=== PATIENT | male | born 1965 | race Caucasian/White ===

== ENCOUNTER 2023-11-28 15:56 | Inpatient (IN) ==
--- NOTE | 2023-11-28 16:32 | Emergency Department Note ---
Impression & Plan ATILIO (acute kidney injury), Hyperkalemia, Heat exhaustion, Acute hyponatremia ED Provider Note Provider: Gerardo Arceo MD DATE OF SERVICE: 11/28/2023 CHIEF COMPLAINT: Chest tightness, tingling, dizzy, dehydration HISTORY OF PRESENT ILLNESS: Patient is a 58-year-old gentleman past medical history of GERD, hypertension, hyperlipidemia presenting here today reporting onset around 130 this afternoon of some chest tightness and tingling in his hands and dizziness. Tingling and dizziness have improved some. No loss of conscious but has felt faint. Denies significant shortness of breath or fever cough or cold symptoms. Reports central chest tightness. 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 Has been try to hydrate. Has worked out in the heat the last several days. Denies any falls or trauma. No significant abdominal pain reported. Got real sweaty and clammy prior to arrival. PAST MEDICAL HISTORY: As noted above MEDICATIONS: Reviewed home medications SOCIAL HISTORY: Works for [employer] PHYSICAL EXAM: GENERAL: alert and oriented in no acute distress on stretcher somewhat fatigued in appearance Head: normocephalic and atraumatic EYES: No injection, discharge or icterus. PERRL NECK: Trachea midline. Supple. ENT: Mucous membranes pink and moist. LUNGS: Airway patent. No retractions. Breath sounds clear HEART: Regular tachycardic rate and rhythm. No chest wall tenderness ABDOMEN: Soft and non-tender, without guarding or rebound. SKIN: Acyanotic somewhat cool and clammy in nature EXTREMITIES: Without swelling, tenderness or deformity NEUROLOGICAL: No focal deficits moving all extremities. No aphasia. No facial droop or slurred speech. Normal strength and tone in the extremities. Sensation to gross touch normal. Ambulatory. EK bpm sinus tachycardia. No PVC or PAC. No acute ST segment elevation or depression with a QTc of 448. CONTINUOUS CARDIAC MONITORING: was ordered and showed a heart rate of 100s-90s bpm in sinus tachycardia to NSR Patient's laboratory studies and imaging reviewed. Differential includes Infection, dehydration, metabolic abnormality, hypo/hyperglycemia, electrolyte disturbance, anemia, hypoxia, cardiac sources, intracerebral event, toxicologic, neurologic, as well as other pathologies. IMPRESSION/MEDICAL DECISION MAKING: Do question there could be some component of environmental exposure/heat exhaustion to symptoms given his exertion and the very warm weather today while driving and working for [employer]. Does endorse some chest tightness. Tingling in the hands nonspecific and I doubt this represents acute CVA. Given his symptoms however CT head was obtained. Basic blood work obtained. Given some IV hydration here. Denies significant trauma or syncope. Denies any URI symptoms. Benign abdomen on exam. Blood work here with leukocytosis of 19, hyponatremia 129, hyperkalemia 5.5, creatinine elevation 1.73 with very slight ALT elevation of 66. Normal troponin. CK was checked to ensure no rhabdomyolysis. Given IV fluids here. Chest x-ray unremarkable per radiology. Given his hyponatremia, hyperkalemia, acute kidney injury all likely related to dehydration, would recommend that we observe him overnight for hydration and improvement of these to ensure no worsening hyperkalemia or renal function. Leukocytosis I believe is noninfectious but more related to exertion and stress. Will hold off on antibiotics at this time. Given some Tylenol for bit of a headache. Repeat BMP ordered. Discussed with patient and who are agreeable to stay for observation given his abnormalities and hospitalist team was contacted. Please likely his electrolyte abnormalities were improved with hydration will hold off on full medications for the hyperkalemia is only 5.5 right now. Repeat BMP does show improving potassium slightly improved creatinine without much change in sodium yet. DIAGNOSIS: Atypical chest pain, ATILIO, hyperkalemia, hyponatremia, heat exhaustion DISPOSITION: Hospitalist will evaluate Past Med/Surg History Problem List Acute hyponatremia (Acute) Heat exhaustion (Acute) Hyperkalemia (Acute) Chest pressure Abnormal urinalysis ATILIO (acute kidney injury) (Acute) Hypertension (Chronic) Hyperlipidemia (Chronic) GERD (gastroesophageal reflux disease) (Chronic) Surgical History (Updated 11/28/23 @ 18:52 by Nathan Buchanan MD) History of tonsillectomy Family History (Updated 11/28/23 @ 18:52 by Nathan Buchanan MD) Father Diabetes Social History Smoking Status: Never smoker Preferred Language: Maori Feels Safe at Home: Yes Assistive Devices: None Allergies Allergies Allergy/AdvReac Type Severity Reaction Status Date / Time No Known Drug Allergies Allergy Unknown Unverified 11/28/23 17:39 Home Meds Home Medications Medication Instructions Recorded Confirmed Flexeril 5 mg PO BID PRN Spasms 11/28/23 11/28/23 metoprolol succinate 50 mg 75 mg PO QAM 11/28/23 11/28/23 tablet,extended release 24 hr rosuvastatin 40 mg tablet 40 mg PO QAM 11/28/23 11/28/23 Results & Data (ED) Vital Signs Vital Signs - 24 hr 11/28/23 15:59 11/28/23 16:16 11/28/23 16:19 Temperature 36.1 C L Temperature Source Temporal Artery Scan Pulse Rate 113 H 108 H Pulse Rate [Apical] 109 H Pulse Rhythm [Apical] Regular Pulse Strength [Apical] Normal Respiratory Rate 19 20 Respiratory Effort / Characteristics Non-Labored Spontaneous Non-Labored Spontaneous Respiratory Depth Normal Normal Respiratory Pattern Regular Blood Pressure 158/89 H Blood Pressure [Left Arm] 152/107 H Blood Pressure Mean 112 Blood Pressure Mean [Left Arm] 122 Blood Pressure Position [Left Arm] Pulse Oximetry 97 97 Oxygen Delivery Method Room Air Room Air Sepsis Recent Fever Within 48 Hours No Sepsis New/Unexplained Change in Mental Status N/A Sepsis Action Taken by Nursing No Action Required 11/28/23 18:00 Temperature Temperature Source Pulse Rate Pulse Rate [Apical] 97 H Pulse Rhythm [Apical] Regular Pulse Strength [Apical] Normal Respiratory Rate 18 Respiratory Effort / Characteristics Non-Labored Spontaneous Respiratory Depth Normal Respiratory Pattern Regular Blood Pressure Blood Pressure [Left Arm] 145/99 H Blood Pressure Mean Blood Pressure Mean [Left Arm] 114 Blood Pressure Position [Left Arm] Lying Pulse Oximetry 96 Oxygen Delivery Method Room Air Sepsis Recent Fever Within 48 Hours Sepsis New/Unexplained Change in Mental Status Sepsis Action Taken by Nursing Laboratory Data 11/28/23 16:12 11/28/23 17:47 Lab Results 11/28/23 11/28/23 Range/Units 16:12 17:47 WBC 19.01 H (4.8-10.8) K/ul RBC 6.05 (4.70-6.10) M/uL Hgb 17.8 (14.0-18.0) g/dl Hct 52.0 (42.0-52.0) % MCV 86.0 (80.0-100.0) fL MCH 29.4 (25.0-34.0) pg MCHC 34.2 (32.0-36.0) g/dL RDW Std Deviation 39.0 (36.4-46.3) fL RDW Coeff of [place]ar 12.6 (11.5-14.5) % Plt Count 341 (130-400) K/uL MPV 9.1 L (9.4-12.4) fL PT 10.4 (9.0-12.0) Seconds INR 1.0 (0.9-1.1) APTT 24 (21-31) Seconds PTT Ratio 0.9 Sodium 129 L 129 L (136-145) mmol/L Potassium 5.5 H 5.0 (3.5-5.1) mmol/L Chloride 88 L 90 L (98-107) mmol/L Carbon Dioxide 28 30 (21-32) mmol/L Anion Gap 13 H 9 (3-11) BUN 32 H 31 H (6-23) mg/dl Creatinine 1.73 H 1.50 H (0.6-1.4) mg/dl Est Cr Clr Drug Dosing Not Reportable Not Reportable Est GFR ( Amer) 49.3 58.6 ml/min Est GFR (Non-Af Amer) 42.6 50.6 ml/min BUN/Creatinine Ratio 18.5 20.7 H (10-20) Glucose 93 84 (70-99(Fasting)) mg/dl Calcium 10.5 H 10.1 (8.6-10.3) mg/dl Magnesium 3.1 H (1.7-2.4) mg/dl Total Bilirubin 2.0 H (0.2-1.0) mg/dl AST 38 (13-39) U/L ALT 66 H (7-52) U/L Alkaline Phosphatase 97 (34-104) U/L Total Creatine Kinase 233 H (30-223) U/L Troponin I High Sens 10.1 (0-20) pg/ml Total Protein 8.7 H (6.0-8.3) gm/dl Albumin 5.0 (3.4-5.0) gm/dl Globulin 3.7 (2.5-4.0) gm/dl Albumin/Globulin Ratio 1.4 (0.9-2) Administered Medications Discontinued Medications Acetaminophen (Acetaminophen 500 Mg Tab) 1,000 mg PO NOW STA Stop: 07/10/24 17:18 Last Admin: 11/28/23 17:24 Dose: 1,000 mg Documented By: ALISHA Sodium Chloride (Nss) 1,000 mls @ 999 mls/hr IV .Q1H1M ONE Stop: 11/28/23 17:27 Last Infusion: 11/28/23 17:37 Dose: Infused Documented By: Admin: 11/28/23 16:35 Dose: 999 mls/hr Documented By: MARY Imaging Data Radiologist's Impression: Chest X-Ray 11/28/23 16:04 XR chest 1V portable HISTORY: 58 years-old Male stroke alert acute strokelike symptoms COMPARISON: None TECHNIQUE: AP view the chest FINDINGS: Cardiac silhouette is enlarged. Lungs are clear. No pneumothorax or pleural effusion. Bones appear intact. IMPRESSION: No acute process. ACT 112: Negative or not required by law. The above report was generated using voice recognition software. It may contain grammatical, syntax or spelling errors. Electronically signed by: Wilfredo Cannon M.D. 11/28/2023 4:[address] 11/28/23 16:04 CT head/brain wo con CLINICAL HISTORY: 58 years-old Male with Neuro deficit, acute, stroke suspected. Acute strokelike symptoms TECHNIQUE: Multiple axial CT images of the head were obtained without contrast. A dose lowering technique was utilized adhering to the principles of ALARA. CT DOSE: 547.75 mGy.cm COMPARISON: None. FINDINGS: No acute intracranial hemorrhage, midline shift, intracranial mass, hydrocephalus, territorial ischemia or abnormal extra-axial collection. Involutional changes with chronic microvascular ischemic disease. The calvarium is intact. The paranasal sinuses, mastoid air cells, and middle ear cavities are clear. IMPRESSION: No acute intracranial abnormality identified. ACT 112: Negative or not required by law. The above report was generated using voice recognition software. It may contain grammatical, syntax or spelling errors. Electronically signed by: Wilfredo Cannon M.D. 11/28/2023 5:07 PM Discharge Plan Visit Data Chief Complaint: Dehydration Stated Complaint: FATIGUE, WEAKNESS, HEAT EXAUSTION/DEHYDRATION ED Provider: Gerardo Arceo Discharge Problem: ATILIO (acute kidney injury), Hyperkalemia, Heat exhaustion, Acute hyponatremia Patient Disposition: Being Evaluated by Hospitalist Forms Stand Alone Forms: My [facility] Prescriptions Prescriptions: No Action metoprolol succinate 50 mg Tablet Extended Release 24 Hr 75 mg PO QAM rosuvastatin 40 mg Tablet 40 mg PO QAM Flexeril 5 mg PO BID PRN (Reason: Spasms) Referrals Referrals: Kelley Avendano PA-C [Primary Care Provider] -
[2023-11-28] MEDS: SODIUM CHLORIDE 0.9% 1,000 ML IV ONE (16:35)
[2023-11-28 16:48] LABS: Alanine Aminotransferase 66 U/L (7-52); Albumin Globulin Ratio 1.4 (0.9-2); Alkaline Phosphatase 97 U/L (34-104); Anion Gap 13 (3-11); Aspartate Aminotransferase 38 U/L (13-39); BUN Creatinine Ratio 18.5 (10-20); Blood Urea Nitrogen 32 mg/dl (6-23); Calcium 10.5 mg/dl (8.6-10.3); Carbon Dioxide 28 mmol/L (21-32); Chloride 88 mmol/L (98-107); Est GFR (African American) 49.3 ml/min; Est GFR (Non-African American) 42.6 ml/min; Globulin 3.7 gm/dl (2.5-4.0); Glucose 93 mg/dl (70-99(Fasting)); Magnesium 3.1 mg/dl (1.7-2.4); Potassium 5.5 mmol/L (3.5-5.1); Sodium 129 mmol/L (136-145); Total Protein 8.7 gm/dl (6.0-8.3)
--- NOTE | 2023-11-28 16:50 | XRay Report ---
XR chest 1V portable HISTORY: 58 years-old Male stroke alert acute strokelike symptoms COMPARISON: None TECHNIQUE: AP view the chest FINDINGS: Cardiac silhouette is enlarged. Lungs are clear. No pneumothorax or pleural effusion. Bones appear in tact. IMPRESSION: No acute process. ACT 112: Negative or not required by law. The above report was generated using voice recognition software. It may contain grammatical, syntax o r spelling errors. Electronically signed by: Wilfredo Cannon M.D. 11/28/2023 4:49 PM
[2023-11-28 16:54] LABS: Hemoglobin 17.8 g/dl (14.0-18.0); Mean Corpuscular Hemoglobin 29.4 pg (25.0-34.0); Mean Corpuscular Hgb Conc 34.2 g/dL (32.0-36.0); Mean Platelet Volume 9.1 fL (9.4-12.4); Platelet Count 341 K/uL (130-400); RDW Coefficient of Variation 12.6 % (11.5-14.5); Red Blood Count 6.05 M/uL (4.70-6.10); Troponin I High Sensitivity 10.1 pg/ml (0-20); White Blood Count 19.01 K/ul (4.8-10.8)
[2023-11-28 17:01] LABS: Partial Thromboplastin Ratio 0.9; Partial Thromboplastin Time 24 Seconds (21-31); Prothrombin Time 10.4 Seconds (9.0-12.0)
--- NOTE | 2023-11-28 17:09 | CT Scan Report ---
CT head/brain wo con CLINICAL HISTORY: 58 years-old Male with Neuro deficit, acute, stroke suspected. Acute strokelike sy mptoms TECHNIQUE: Multiple axial CT images of the head were obtained without contrast. A dose lowering tech nique was utilized adhering to the principles of ALARA. CT DOSE: 547.75 mGy.cm COMPARISON: None. FINDINGS: No acute intracranial hemorrhage, midline shift, intracranial mass, hydrocephalus, territorial ischem ia or abnormal extra-axial collection. Involutional changes with chronic microvascular ischemic disea se. The calvarium is intact. The paranasal sinuses, mastoid air cells, and middle ear cavities are clear . IMPRESSION: No acute intracranial abnormality identified. ACT 112: Negative or not required by law. The above report was generated using voice recognition software. It may contain grammatical, syntax o r spelling errors. Electronically signed by: Wilfredo Cannon M.D. 11/28/2023 5:07 PM
[2023-11-28] MEDS: ACETAMINOPHEN 500 MG TAB PO STA (17:24)
[2023-11-28 17:26] LABS: Creatine Kinase 233 U/L (30-223)
--- NOTE | 2023-11-28 17:36 | History & Physical Report ---
Date of Service November 28, 2023 Assessment & Plan (1) ATILIO (acute kidney injury): Plan: Acute kidney injury Likely prerenal due to dehydration Avoid NSAIDs Baseline Cr: 0.9 Avoid nephro toxic agents Continue IV fluids Monitor renal function Check renal ultrasound Monitor CK levels Leukocytosis Hypercalcemia Hyperkalemia Hyponatremia Likely secondary to ATILIO, dehydration No obvious source of infection Will hold IV antibiotics for now Blood cultures obtained Monitor electrolytes, WBC Continue IV fluids Chest Pain: Likely related to high blood pressure Initial troponin:Negative EKG shows: No signs of acute ischemia CXR: Unremarkable Check resting echo Trend serial cardiac enzymes, repeat EKG AM, fasting lipid panel in AM Treat blood pressure Will consider cardiology evaluation if needed Hypertensive urgency Continue metoprolol Added amlodipine IV labetalol as needed Monitor BP Presyncope: Likely Situational CT head: No acute intracranial findings Monitor in Telemetry for arrhythmia Check Orthostatics Continue IV fluids Check ECHO Hyperlipidemia Continue statin Obesity BMI 38 Counseled lifestyle changes Chronic back pain Lumbar disc herniation Flexeril as needed Prediabetes Update HbA1c DVT Px: Heparin SQ Code Status Full Code History of Present Illness Chief Complaint: Presyncope Primary Care Provider: Kelley Avendano PA-C Patient is a 58-year-old male with history of hypertension, hyperlipidemia, lumbar disc herniation, prediabetes and obesity presents with history of dizziness associated with chest tightness and upper extremity tingling sensation today. 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 He felt dizzy but denies any syncopal episode. Chest tightness lasted for unknown duration and currently resolved. He denies any aggravating, relieving factors. He admits to have headache today. He thought that he could be dehydrated and so came to ED for further evaluation. Tingling sensation in upper extremity resolved as well. He felt diaphoretic, clammy prior to arrival. Denies any history of Dyspnea, palpitations, cough, wheezing, fever, chills, fall, head trauma, focal weakness, change in vision, nausea, vomiting, abdominal pain, diarrhea, change in appetite. Was noted to have elevated blood pressure while in ED. Allergies Allergy/AdvReac Type Severity Reaction Status Date / Time No Known Drug Allergies Allergy Unknown Unverified 11/28/23 17:39 Home Medications Medication Instructions Recorded Confirmed Type Flexeril 5 mg PO BID PRN Spasms 11/28/23 11/28/23 History metoprolol succinate 50 mg 75 mg PO QAM 11/28/23 11/28/23 History tablet,extended release 24 hr rosuvastatin 40 mg tablet 40 mg PO QAM 11/28/23 11/28/23 History Past Med/Surg History Problem List Acute hyponatremia (Acute) Heat exhaustion (Acute) Hyperkalemia (Acute) Chest pressure Abnormal urinalysis ATILIO (acute kidney injury) (Acute) Hypertension (Chronic) Hyperlipidemia (Chronic) GERD (gastroesophageal reflux disease) (Chronic) Surgical History (Updated 11/28/23 @ 18:52 by Nathan Buchanan MD) History of tonsillectomy Family History (Updated 11/28/23 @ 18:52 by Nathan Buchanan MD) Father Diabetes Social History Smoking Status: Never smoker Preferred Language: Albanian Feels Safe at Home: Yes Assistive Devices: None Review of Systems Review of Systems: All systems reviewed & are unremarkable except as noted in Subjective Physical Exam Physical Exam: Physical Exam: Vitals signs as noted above General Appearance:Obese, no apparent distress Head: normocephalic, Atraumatic Eyes: normal inspection, EOMI Neck: supple, Trachea midline Respiratory/Chest: Normal breath sounds, CTA, No accessory muscle use Cardiovascular: S1, S2, No murmur, +Tachycardia Abdomen/GI:Soft, Non tender, Bowel sounds present Extremities/Musculoskeletal:normal inspection, Trace pedal edema Neurologic/Psych:AAOX3, grossly no focal neurological deficits Skin: normal color, warm Results & Data Results & Data Vital Signs (Past 12 Hours) Vital Signs Temp Pulse Pulse Resp BP BP Pulse Ox 11/28/23 16:19 109 H 20 152/107 H 97 11/28/23 16:16 108 H 11/28/23 15:59 36.1 C L 113 H 19 158/89 H 97 O2 Del Method 11/28/23 16:19 Room Air 11/28/23 16:16 11/28/23 15:59 Room Air Laboratory Results Short CBC 11/28/23 Range/Units 16:12 WBC 19.01 H (4.8-10.8) K/ul Hgb 17.8 (14.0-18.0) g/dl Hct 52.0 (42.0-52.0) % Plt Count 341 (130-400) K/uL BMP 11/28/23 11/28/23 16:12 17:47 Sodium 129 L 129 L Potassium 5.5 H 5.0 Chloride 88 L 90 L Carbon Dioxide 28 30 BUN 32 H 31 H Creatinine 1.73 H 1.50 H Glucose 93 84 Calcium 10.5 H 10.1 Cardiac Enzymes 11/28/23 Range/Units 16:12 Total Creatine Kinase 233 H (30-223) U/L Liver Function 11/28/23 Range/Units 16:12 Total Bilirubin 2.0 H (0.2-1.0) mg/dl AST 38 (13-39) U/L ALT 66 H (7-52) U/L Alkaline Phosphatase 97 (34-104) U/L Albumin 5.0 (3.4-5.0) gm/dl Diagnostic Findings --CT Head:No acute intracranial abnormality identified. --CXR:No acute process. Medications Administered Home Medications Medication Instructions Recorded Confirmed Flexeril 5 mg PO BID PRN Spasms 11/28/23 11/28/23 metoprolol succinate 50 mg 75 mg PO QAM 11/28/23 11/28/23 tablet,extended release 24 hr rosuvastatin 40 mg tablet 40 mg PO QAM 11/28/23 11/28/23 ECG Additional Comments: EKG: Sinus tachycardia, possible left atrial enlargement, QTc 448.
[2023-11-28] MEDS ORDERED: LABETALOL HCL IV 5 MG/ML 20ML IV PRN (17:53)
[2023-11-28 18:17] LABS: Anion Gap 9 (3-11); BUN Creatinine Ratio 20.7 (10-20); Blood Urea Nitrogen 31 mg/dl (6-23); Calcium 10.1 mg/dl (8.6-10.3); Carbon Dioxide 30 mmol/L (21-32); Chloride 90 mmol/L (98-107); Est GFR (African American) 58.6 ml/min; Est GFR (Non-African American) 50.6 ml/min; Glucose 84 mg/dl (70-99(Fasting)); Sodium 129 mmol/L (136-145)
--- NOTE | 2023-11-28 18:36 | Electrocardiogram Report ---
Test Reason : Blood Pressure : / mmHG Vent. Rate : 106 BPM Atrial Rate : 106 BPM P-R Int : 132 ms QRS Dur : 088 ms QT Int : 338 ms P-R-T Axes : 030 -11 040 degrees QTc Int : 448 ms Sinus tachycardia Possible Left atrial enlargement Borderline ECG When compared with ECG of 17-JAN-2018 13:59, ST no longer elevated in Lateral leads Confirmed by Artis Gee ([id number]) on 11/28/2023 6:35:50 PM Referred By: Confirmed By:Feng Gee
[2023-11-28] MEDS: amLODIPine BESYLATE 5 MG TAB PO ONE (19:09)
[2023-11-28] MEDS ORDERED: POLYETHYLENE (MIRALAX) 17 GM PACK PO PRN (20:16)
[2023-11-28] MEDS ORDERED: ONDANSETRON INJ 2 MG/ML 2 ML VIAL IV PRN (20:16)
[2023-11-28] MEDS ORDERED: CYCLOBENZAPRINE HCL 5 MG TAB PO PRN (20:21)
[2023-11-28] MEDS ORDERED: oxyCODONE HCL IR 5 MG TAB (IMMEDIATE RELEASE) PO PRN (20:36)
[2023-11-28 20:48] LABS: Appearance Urine Clear (Clear); Bilirubin Urine Negative (Negative); Blood Urine Negative (Negative); Color Urine Yellow; Glucose Urine UA Negative (Negative); Ketones Urine Trace (Negative); Leukocyte Esterase Urine Negative (Negative); Nitrite Urine Negative (Negative); Protein Urine Negative (Negative); Specific Gravity Urine 1.012 (1.000-1.030); Urobilinogen Urine Negative (Negative); pH Urine 7.5 (4.5-7.5)
[2023-11-28] MEDS: SODIUM CHLORIDE 0.9% 1,000 ML IV SCH (21:02)
[2023-11-28] MEDS: HEPARIN SOD 5,000 UNIT/0.5 ML VIAL SQ SCH (21:04)
[2023-11-28 23:20] LABS: BUN Creatinine Ratio 26.2 (10-20); Calcium 9.4 mg/dl (8.6-10.3); Est GFR (African American) 75.3 ml/min; Est GFR (Non-African American) 64.9 ml/min; Potassium 3.9 mmol/L (3.5-5.1)
[2023-11-28 23:28] LABS: Troponin I High Sensitivity 7.7 pg/ml (0-20)
[2023-11-29] MEDS: ACETAMINOPHEN 325 MG TAB PO PRN (05:45)
[2023-11-29 06:26] LABS: Basophils # (auto) 0.05 K/uL (0.00-0.20); Basophils % (auto) 0.4 %; Eosinophils # (auto) 0.47 K/uL (0.00-0.50); Eosinophils % (auto) 4.1 %; Hematocrit (blood only) 46.6 % (42.0-52.0); Hemoglobin 15.8 g/dl (14.0-18.0); Immature Granulocytes # (auto) 0.08 K/uL (0.01-0.20); Immature Granulocytes % (auto) 0.7 %; Lymphocytes # (auto) 3.41 K/uL (1.20-3.40); Mean Corpuscular Hemoglobin 29.9 pg (25.0-34.0); Mean Corpuscular Hgb Conc 33.9 g/dL (32.0-36.0); Mean Corpuscular Volume 88.1 fL (80.0-100.0); Mean Platelet Volume 8.9 fL (9.4-12.4); Monocytes # (auto) 1.18 K/uL (0.11-0.59); Monocytes % (auto) 10.4 %; Neutrophils # (auto) 6.17 K/uL (1.40-6.50); Neutrophils % (auto) 54.4 %; Platelet Count 274 K/uL (130-400); RDW Coefficient of Variation 12.6 % (11.5-14.5); RDW Standard Deviation 40.8 fL (36.4-46.3); Red Blood Count 5.29 M/uL (4.70-6.10); White Blood Count 11.36 K/ul (4.8-10.8)
[2023-11-29 06:50] LABS: Albumin Globulin Ratio 1.4 (0.9-2); Albumin Level 4.1 gm/dl (3.4-5.0); BUN Creatinine Ratio 28.4 (10-20); Bilirubin,Total 1.3 mg/dl (0.2-1.0); Calcium 8.9 mg/dl (8.6-10.3); Chol HDL Ratio 2.5 (0-5); Creatinine Clr Calc Pharmacy 110.4 ml/min; Est GFR (African American) 101.9 ml/min; Est GFR (Non-African American) 87.9 ml/min; Globulin 2.9 gm/dl (2.5-4.0); Magnesium 2.9 mg/dl (1.7-2.4); Potassium 4.6 mmol/L (3.5-5.1)
[2023-11-29 06:53] LABS: Troponin I High Sensitivity 7.9 pg/ml (0-20)
--- NOTE | 2023-11-29 06:56 | Ultrasound Report ---
ULTRASOUND KIDNEYS AND BLADDER CLINICAL HISTORY: Acute renal insufficiency. COMPARISON STUDY: Renal ultrasound dated 01/17/2018. TECHNIQUE: Real-time, grayscale, and color flow sonography of the kidneys and bladder is performed. I mages are reviewed in the transverse and longitudinal planes. FINDINGS: Kidneys: The kidneys are normal in size and echotexture. The right kidney measures 12.7 cm in length and the left kidney measures 12.0 cm in length. There is no hydronephrosis. No shadowing renal calcu li are identified. There is no sonographic evidence of contour deforming renal mass lesion. No perine phric fluid is identified. Bladder: The bladder wall appears thickened/trabeculated indicating chronic outlet obstruction. Bilat eral ureteral jets were seen. IMPRESSION: 1. The kidneys are normal in size and without hydronephrosis. 2. The appearance of the bladder suggests chronic outlet obstruction. ACT 112: Negative or not required by law. Electronically signed by: Gray Barnes M.D. 11/29/2023 6:53 AM
[2023-11-29 07:08] LABS: Estimated Average Glucose 137 mg/dl; Hemoglobin A1C 6.4 % (4.5-5.6)
[2023-11-29] MEDS: amLODIPine BESYLATE 5 MG TAB PO SCH (07:51)
[2023-11-29] MEDS: METOPROLOL SUCC 25MG EXT REL TAB PO SCH (07:52)
[2023-11-29] MEDS: ROSUVASTATIN CALCIUM 20 MG TAB PO SCH (07:52)
--- NOTE | 2023-11-29 12:39 | Hospitalist Progress Note ---
Date of Service November 29, 2023 Assessment & Plan (1) ATILIO (acute kidney injury): Plan: Acute kidney injury Likely prerenal due to dehydration Avoid NSAIDs Baseline Cr: 0.9 --Renal USD:The kidneys are normal in size and without hydronephrosis. The acrter earance of the bladder suggests chronic outlet obstruction. Avoid nephro toxic agents Received IV fluids Monitor renal function Renal function back to baseline Leukocytosis Hypercalcemia Hyperkalemia Hyponatremia Likely secondary to ATILIO, dehydration No obvious source of infection Leukocytosis much improved Monitor electrolytes, WBC Hypercalcemia, hyperkalemia resolved Sodium levels improved to 134 Received IV fluids Chest Pain: Likely related to high blood pressure Resolved Troponin X3 :Negative EKG shows: No signs of acute ischemia CXR: Unremarkable ECHO: Left ventricle cavity is small. Moderate concentric LVH. Left ventricular wall motion is normal. EF 60 to 65%. Grade 1 diastolic dysfunction. No valvular disease. No pericardial effusion Trend serial cardiac enzymes, repeat EKG AM, fasting lipid panel in AM Continue metoprolol Added losartan for better blood pressure control Will refer to follow-up with cardiology as outpatient for possible stress test Hypertensive urgency Continue metoprolol Added Losartan Monitor BP Advised to monitor blood pressure regularly at home Advised lifestyle changes Presyncope: Likely Situational CT head: No acute intracranial findings Monitor in Telemetry for arrhythmia Normal Orthostatics ECHO as above Hyperlipidemia Continue statin Obesity BMI 38 Counseled lifestyle changes Chronic back pain Lumbar disc herniation Flexeril as needed Prediabetes HbA1c 6.4 Advised dietary, lifestyle changes DVT Px: Heparin SQ Code Status Full Code Admission and Anticipated Discharge Date Admission Date: November 28, 2023 Subjective Patient is seen and examined at bedside States having generalized weakness but otherwise no new complaints Dizziness resolved Denies any chest pain, dyspnea, nausea, vomiting, abdominal pain Plan to be discharged home today Review of Systems Review of Systems: All systems reviewed & are unremarkable except as noted in Subjective Physical Exam Physical Exam: Physical Exam: Vitals signs as noted above General Appearance:Obese, no apparent distress Head: normocephalic, Atraumatic Eyes: normal inspection, EOMI Neck: supple, Trachea midline Respiratory/Chest: Normal breath sounds, CTA, No accessory muscle use Cardiovascular: S1, S2, No murmur Abdomen/GI:Soft, Non tender, Bowel sounds present Extremities/Musculoskeletal:normal inspection, Trace pedal edema Neurologic/Psych:AAOX3, grossly no focal neurological deficits Skin: normal color, warm Results & Data Results & Data Vital Signs (Past 12 Hours) Vital Signs Temp Pulse Pulse Pulse Resp BP Pulse Ox 11/29/23 10:46 36.6 C 85 18 149/80 H 95 11/29/23 08:39 83 11/29/23 07:16 36.4 C L 79 18 144/81 H 94 11/29/23 03:12 36.4 C L 83 20 149/81 H 95 O2 Del Method 11/29/23 10:46 Room Air 11/29/23 08:39 11/29/23 07:16 Room Air 11/29/23 03:12 Room Air Laboratory Results Short CBC 11/28/23 11/29/23 Range/Units 16:12 05:56 WBC 19.01 H 11.36 H (4.8-10.8) K/ul Hgb 17.8 15.8 (14.0-18.0) g/dl Hct 52.0 46.6 (42.0-52.0) % Plt Count 341 274 (130-400) K/uL BMP 11/28/23 11/28/23 11/28/23 16:12 17:47 22:47 Sodium 129 L 129 L 127 L Potassium 5.5 H 5.0 3.9 D Chloride 88 L 90 L 92 L Carbon Dioxide 28 30 27 BUN 32 H 31 H 32 H Creatinine 1.73 H 1.50 H 1.22 Glucose 93 84 110 H Calcium 10.5 H 10.1 9.4 11/29/23 05:56 Sodium 134 L Potassium 4.6 Chloride 99 Carbon Dioxide 29 BUN 27 H Creatinine 0.95 Glucose 97 Calcium 8.9 Cardiac Enzymes 11/28/23 11/29/23 Range/Units 16:12 05:56 Total Creatine Kinase 233 H 185 (30-223) U/L Liver Function 11/28/23 11/29/23 Range/Units 16:12 05:56 Total Bilirubin 2.0 H 1.3 H (0.2-1.0) mg/dl AST 38 28 (13-39) U/L ALT 66 H 46 (7-52) U/L Alkaline Phosphatase 97 84 (34-104) U/L Albumin 5.0 4.1 (3.4-5.0) gm/dl Urine 11/28/23 Range/Units 20:38 Urine Color Yellow Urine Appearance Clear (Clear) Urine pH 7.5 (4.5-7.5) Ur Specific [place] 1.012 (1.000-1.030) Urine Protein Negative (Negative) Urine Glucose (UA) Negative (Negative)
--- NOTE | 2023-11-29 12:46 | Discharge Summary ---
Date of Service November 29, 2023 Admission HPI Per Admitting Provider Patient is a 58-year-old male with history of hypertension, hyperlipidemia, lumbar disc herniation, prediabetes and obesity presents with history of dizziness associated with chest tightness and upper extremity tingling sensation today. 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 He felt dizzy but denies any syncopal episode. Chest tightness lasted for unknown duration and currently resolved. He denies any aggravating, relieving factors. He admits to have headache today. He thought that he could be dehydrated and so came to ED for further evaluation. Tingling sensation in upper extremity resolved as well. He felt diaphoretic, clammy prior to arrival. Denies any history of Dyspnea, palpitations, cough, wheezing, fever, chills, fall, head trauma, focal weakness, change in vision, nausea, vomiting, abdominal pain, diarrhea, change in appetite. Was noted to have elevated blood pressure while in ED. Principal Diagnosis Acute kidney injury Leukocytosis Hypercalcemia Hyperkalemia Hyponatremia Hypertensive urgency Presyncope Discharge Data Allergies Allergy/AdvReac Type Severity Reaction Status Date / Time No Known Drug Allergies Allergy Unknown Unverified 11/28/23 17:39 Consultations 11/28/23 17:29 ED Decision to Admit Stat Procedures Performed Laboratory Results WBC 11.36 K/ul (4.8-10.8) H 11/29/23 05:56 RBC 5.29 M/uL (4.70-6.10) 11/29/23 05:56 Hgb 15.8 g/dl (14.0-18.0) 11/29/23 05:56 Hct 46.6 % (42.0-52.0) 11/29/23 05:56 MCV 88.1 fL (80.0-100.0) 11/29/23 05:56 MCH 29.9 pg (25.0-34.0) 11/29/23 05:56 MCHC 33.9 g/dL (32.0-36.0) 11/29/23 05:56 RDW Std Deviation 40.8 fL (36.4-46.3) 11/29/23 05:56 RDW Coeff of Boubacar 12.6 % (11.5-14.5) 11/29/23 05:56 Plt Count 274 K/uL (130-400) 11/29/23 05:56 MPV 8.9 fL (9.4-12.4) L 11/29/23 05:56 Immature Gran % (Auto) 0.7 % 11/29/23 05:56 Neut % (Auto) 54.4 % 11/29/23 05:56 Lymph % (Auto) 30.0 % 11/29/23 05:56 Stafford % (Auto) 10.4 % 11/29/23 05:56 Eos % (Auto) 4.1 % 11/29/23 05:56 Baso % (Auto) 0.4 % 11/29/23 05:56 Neut # (Auto) 6.17 K/uL (1.40-6.50) 11/29/23 05:56 Lymph # (Auto) 3.41 K/uL (1.20-3.40) H 11/29/23 05:56 Stafford # (Auto) 1.18 K/uL (0.11-0.59) H 11/29/23 05:56 Eos # (Auto) 0.47 K/uL (0.00-0.50) 11/29/23 05:56 Baso # (Auto) 0.05 K/uL (0.00-0.20) 11/29/23 05:56 Immature Gran # (Auto) 0.08 K/uL (0.01-0.20) 11/29/23 05:56 PT 10.4 Seconds (9.0-12.0) 11/28/23 16:12 INR 1.0 (0.9-1.1) 11/28/23 16:12 APTT 24 Seconds (21-31) 11/28/23 16:12 PTT Ratio 0.9 11/28/23 16:12 Sodium 134 mmol/L (136-145) L 11/29/23 05:56 Potassium 4.6 mmol/L (3.5-5.1) 11/29/23 05:56 Chloride 99 mmol/L (98-107) 11/29/23 05:56 Carbon Dioxide 29 mmol/L (21-32) 11/29/23 05:56 Anion Gap 6 (3-11) 11/29/23 05:56 BUN 27 mg/dl (6-23) H 11/29/23 05:56 Creatinine 0.95 mg/dl (0.6-1.4) 11/29/23 05:56 Est Cr Clr Drug Dosing 110.4 ml/min 11/29/23 05:56 Est GFR ( Amer) 101.9 ml/min 11/29/23 05:56 Est GFR (Non-Af Amer) 87.9 ml/min 11/29/23 05:56 BUN/Creatinine Ratio 28.4 (10-20) H 11/29/23 05:56 Glucose 97 mg/dl (70-99(Fasting)) 11/29/23 05:56 Estimat Average Glucose 137 mg/dl 11/29/23 05:56 Hemoglobin A1c 6.4 % (4.5-5.6) H 11/29/23 05:56 Calcium 8.9 mg/dl (8.6-10.3) 11/29/23 05:56 Magnesium 2.9 mg/dl (1.7-2.4) H 11/29/23 05:56 Total Bilirubin 1.3 mg/dl (0.2-1.0) H 11/29/23 05:56 AST 28 U/L (13-39) 11/29/23 05:56 ALT 46 U/L (7-52) 11/29/23 05:56 Alkaline Phosphatase 84 U/L (34-104) 11/29/23 05:56 Total Creatine Kinase 185 U/L (30-223) 11/29/23 05:56 Troponin I High Sens 7.9 pg/ml (0-20) 11/29/23 05:56 Total Protein 7.0 gm/dl (6.0-8.3) 11/29/23 05:56 Albumin 4.1 gm/dl (3.4-5.0) 11/29/23 05:56 Globulin 2.9 gm/dl (2.5-4.0) 11/29/23 05:56 Albumin/Globulin Ratio 1.4 (0.9-2) 11/29/23 05:56 Triglycerides 195 mg/dl (0-150) H 11/29/23 05:56 Cholesterol 135 mg/dl (0-200) 11/29/23 05:56 LDL Cholesterol, Calc 41 mg/dl 11/29/23 05:56 VLDL Cholesterol, Calc 39 mg/dl (0-30) H 11/29/23 05:56 HDL Cholesterol 55 mg/dl 11/29/23 05:56 Cholesterol/HDL Ratio 2.5 (0-5) 11/29/23 05:56 Urine Color Yellow 11/28/23 20:38 Urine Appearance Clear (Clear) 11/28/23 20:38 Urine pH 7.5 (4.5-7.5) 11/28/23 20:38 Ur Specific [place] 1.012 (1.000-1.030) 11/28/23 20:38 Urine Protein Negative (Negative) 11/28/23 20:38 Urine Glucose (UA) Negative (Negative) 11/28/23 20:38 Urine Ketones Trace (Negative) H 11/28/23 20:38 Urine Blood Negative (Negative) 11/28/23 20:38 Urine Nitrite Negative (Negative) 11/28/23 20:38 Urine Bilirubin Negative (Negative) 11/28/23 20:38 Urine Urobilinogen Negative (Negative) 11/28/23 20:38 Ur Leukocyte Esterase Negative (Negative) 11/28/23 20:38 Impressions Chest X-Ray 11/28/23 16:04 XR chest 1V portable HISTORY: 58 years-old Male stroke alert acute strokelike symptoms COMPARISON: None TECHNIQUE: AP view the chest FINDINGS: Cardiac silhouette is enlarged. Lungs are clear. No pneumothorax or pleural effusion. Bones appear intact. IMPRESSION: No acute process. ACT 112: Negative or not required by law. The above report was generated using voice recognition software. It may contain grammatical, syntax or spelling errors. Electronically signed by: Wilfredo Cannon M.D. 11/28/2023 4:[address] 11/28/23 16:04 CT head/brain wo con CLINICAL HISTORY: 58 years-old Male with Neuro deficit, acute, stroke suspected. Acute strokelike symptoms TECHNIQUE: Multiple axial CT images of the head were obtained without contrast. A dose lowering technique was utilized adhering to the principles of ALARA. CT DOSE: 547.75 mGy.cm COMPARISON: None. FINDINGS: No acute intracranial hemorrhage, midline shift, intracranial mass, hydro cephalus, territorial ischemia or abnormal extra-axial collection. Involutional changes with chronic microvascular ischemic disease. The calvarium is intact. The paranasal sinuses, mastoid air cells, and middle ear cavities are clear. IMPRESSION: No acute intracranial abnormality identified. ACT 112: Negative or not required by law. The above report was generated using voice recognition software. It may contain grammatical, syntax or spelling errors. Electronically signed by: Wilfredo Cannon M.D. 11/28/2023 5:07 PM Renal Ultrasound 11/28/23 20:16 ULTRASOUND KIDNEYS AND BLADDER CLINICAL HISTORY: Acute renal insufficiency. COMPARISON STUDY: Renal ultrasound dated 01/17/2018. TECHNIQUE: Real-time, grayscale, and color flow sonography of the kidneys and bladder is performed. Images are reviewed in the transverse and longitudinal planes. FINDINGS: Kidneys: The kidneys are normal in size and echotexture. The right kidney measures 12.7 cm in length and the left kidney measures 12.0 cm in length. There is no hydronephrosis. No shadowing renal calculi are identified. There is no sonographic evidence of contour deforming renal mass lesion. No perinephric fluid is identified. Bladder: The bladder wall appears thickened/trabeculated indicating chronic outlet obstruction. Bilateral ureteral jets were seen. IMPRESSION: 1. The kidneys are normal in size and without hydronephrosis. 2. The appearance of the bladder suggests chronic outlet obstruction. ACT 112: Negative or not required by law. Electronically signed by: Gray Barnes M.D. 11/29/2023 6:53 AM Ordered Studies 11/28/23 16:04 CT head/brain wo con Stat 11/28/23 20:16 US Renal Bladder [US renal/blad retro comp] Routine Hospital Course (1) ATILIO (acute kidney injury): Acute kidney injury Likely prerenal due to dehydration Avoid NSAIDs Baseline Cr: 0.9 --Renal USD:The kidneys are normal in size and without hydronephrosis. The appearance of the bladder suggests chronic outlet obstruction. Avoid nephro toxic agents Received IV fluids Monitor renal function Renal function back to baseline Leukocytosis Hypercalcemia Hyperkalemia Hyponatremia Likely secondary to ATILIO, dehydration No obvious source of infection Leukocytosis much improved Monitor electrolytes, WBC Hypercalcemia, hyperkalemia resolved Sodium levels improved to 134 Received IV fluids Chest Pain: Likely related to high blood pressure Resolved Troponin X3 :Negative EKG shows: No signs of acute ischemia CXR: Unremarkable ECHO: Left ventricle cavity is small. Moderate concentric LVH. Left ventricular wall motion is normal. EF 60 to 65%. Grade 1 diastolic dysfunction. No valvular disease. No pericardial effusion Trend serial cardiac enzymes, repeat EKG AM, fasting lipid panel in AM Continue metoprolol Added losartan for better blood pressure control Will refer to follow-up with cardiology as outpatient for possible stress test Hypertensive urgency Continue metoprolol Added Losartan Monitor BP Advised to monitor blood pressure regularly at home Advised lifestyle changes Presyncope: Likely Situational CT head: No acute intracranial findings Monitor in Telemetry for arrhythmia Normal Orthostatics ECHO as above Hyperlipidemia Continue statin Obesity BMI 38 Counseled lifestyle changes Chronic back pain Lumbar disc herniation Flexeril as needed Prediabetes HbA1c 6.4 Advised dietary, lifestyle changes DVT Px: Heparin SQ Code Status Full Code Total Time Total Time Spent Total Time Spent (In Minutes): 54 minutes Discharge Plan Discharge Items Patient Disposition: Home - Self-Care Reason For Visit: ATILIO Discharge Diagnosis: Acute kidney injury Leukocytosis Hypercalcemia Hyperkalemia Hyponatremia Hypertensive urgency Presyncope Activity: Per Instructions section Exercise/Sports: Gradually increase as tolerated Non-emergency contact: Primary Care Provider and Clark Driver Call non-emergency contact if: you have any medication questions, your symptoms worsen, your pain is concerning for you and you have a fever Follow-up/Referrals: Kelley Avendano PA-C [Primary Care Provider] - (Date & Time 12/03/2023 11:00 AM Provider Kelley Avendano PA-C Department [facility] ) Diet: Heart Healthy Addtl Attending Provider Instructions: Follow-up with your primary care physician Kelley Avendano PA-C on 12/03/2023 11:00 AM as scheduled Consider following with night court magistrate for management of your blood pressure, for possible stress test as outpatient -- Monitor your blood pressure regularly at home. Discuss with your physician for further adjustment of blood pressure medications as needed. -- Consider obtaining sleep study as outpatient to rule out sleep Apnea -- Obtain blood (CBC, BMP) in 1 week to monitor your white blood cell count, renal function and electrolytes. Discussed with your physician with results for further management. Seek immediate medical attention if your symptoms reoccur or worsen Please take all medications as instructed on discharge list below. Please call if you have any questions or problems. You can reach a [facility] hospitalist on duty at [facility] 24 hours a day by calling [phone] Pending Studies at Discharge: No Stand-Alone Forms: My [facility], Work/School Release, Smoking Cessation Medications and DC Order Prescriptions: New losartan 25 mg Tablet 25 mg PO QAM Qty: 30 0RF Continued metoprolol succinate 50 mg Tablet Extended Release 24 Hr 75 mg PO QAM rosuvastatin 40 mg Tablet 40 mg PO QAM Flexeril 5 mg PO BID PRN (Reason: Spasms) Discharge Orders: Discharge Order (Routine); Ordered 11/29/23 Ordered By: Nathan Buchanan Admission Data Admit Date/Time: 11/28/23 17:55 Attending Provider: Nathan Buchanan Admit Provider: Nathan Buchanan Primary Care Provider: Kelley Avendano Other Providers: Bryson Linton
[2023-11-29] MEDS: LOSARTAN POTASSIUM 25 MG TAB PO SCH (13:08)
--- NOTE | 2023-11-29 13:38 | Electrocardiogram Report ---
Test Reason : Blood Pressure : / mmHG Vent. Rate : 080 BPM Atrial Rate : 080 BPM P-R Int : 130 ms QRS Dur : 092 ms QT Int : 430 ms P-R-T Axes : 029 -07 012 degrees QTc Int : 495 ms Normal sinus rhythm Prolonged QT Abnormal ECG When compared with ECG of 28-NOV-2023 16:19, No significant change was found Confirmed by Artis Gee ([id number]) on 11/29/2023 1:38:22 PM Referred By: REFERRED SELF Confirmed By:Feng Gee
--- OUTSIDE RECORDS SUMMARY | 2023-11-29 15:59 | External Medical Summary | Summary of Care ---
Author Name Unknown Organization [facility] Address [address] [facility] [address] Phone [phone] Care Team Providers Care Back Tender Fourdrinier Name Role Phone Kelley Avendano PA-C Primary Care Provider [phone] Encounter Details Date Type Department Care Team (Latest Contact Info) Description 11/20/2023 10:57 AM EDT - 11/20/2023 11:59 PM EDT Hospital Encounter Orthopaedics, [facility] [address] [place] [address] Arrived Discharge Disposition: Home - Self Care Allergies No known active allergiesdocumented as of this encounter (statuses as of 11/21/2023) Medications Medication Sig Dispensed Refills Start Date End Date Status Metoprolol Succinate ER 50 MG Oral Tablet Extended Release 24 Hour (toPROL XL)Indications:HTN, goal below 130/80 Take 1 and 1/2 Tablets by mouth in the morning. 135 Tablet 3 03/23/2023 Active Rosuvastatin Calcium 40 MG Oral Tablet (Crestor)Indication s:Hyperlipidemia LDL goal <100 Take 1 Tablet by mouth in the morning. 90 Tablet 3 03/23/2023 Active methylPREDNISolone 4 MG Oral Tablet Therapy Pack (Medrol Dosepack) follow package directions 21 Tablet 11/20/2023 Active Cyclobenzaprine HCl 5 MG Oral Tablet (Flexeril) Take 1 Tablet by mouth 2 times a day as needed for Muscle spasms. 40 Tablet 2 11/20/2023 Active documented as of this encounter (statuses as of 11/21/2023) Active Problems Problem Noted Date Diagnosed Date Class 1 obesity due to exces s calories with serious comorbidity and body mass index (BMI) of 34.0 to 34.9 in adult 03/23/2023 Prediabetes 02/28/2021 Overview: Per Prediabetes protocol Renal cyst 02/06/2018 Lumbosacral disc herniation 02/12/2017 Hyperlipidemia LDL goal <100 01/06/2015 Overview: ICD-10 update of inactive term Gastroesophageal reflux disease without esophagi tis 01/06/2015 HTN, goal below 130/80 03/03/2014 documented as of this encounter (statuses as of 11/21/2023) Resolved Problems Problem Noted Date Diagnosed Date Resolved Date Class 2 severe obesity due t o excess calories with serious comorbidity and body mass index (BMI) of 36.0 to 36.9 in adult 02/07/2021 ATILIO (acute kidney injury) 12/31/2019 Dehydration 12/31/2019 05/31/2020 Chest tightness 12/31/2019 05/31/2020 Hyponatremia 12/31/2019 05/31/2020 Severe obesity with body mas s index (BMI) of 35.0 to 39.9 with serious comorbidity 10/21/2018 Obesity, Class I, BMI 30.0-3 4.9 (see actual BMI) 02/12/2017 10/21/2018 Pure hypercholesterolemia 03/03/2014 Esophageal reflux 03/03/2014 01/06/2015 documented as of this encounter (statuses as of 11/21/2023) Immunizations Name Administration Dates Next Due Seasonal Influenza, PF, 6 M & above, IM , (FluLaval or Fluzone) 03/23/2023,02/08/2022,02/07/2021,2020,05/28/2019,01/31/2018,02/12/2017 Seasonal Influenza, Quadriva lent, No Preserve, IM 03/01/2016,05/20/2015 Seasonal Influenza, Split, I IV3, With Preserve, Inj 03/03/2014 TDAP (age 10 and older)(Boostrix) 01/06/2015 Zoster Vaccine Recombinant (Shingrix) 09/05/2019 ,05/28/2019 documented as of this encounter Social History Tobacco Use Types Packs/Day Years Used Date Smoking Tobacco: Never Smokeless Tobacco: Never Alcohol Use Standard Drinks/Week Comments Yes 0 (1 standard drink = 0.6 oz pur e alcohol) socially PHQ-2 Answer Date Recorded PHQ Adult Total Score 0 03/23/2023 Hunger Vital Sign Answer Date Recorded Within the past 12 months, y ou worried that your food would run out before you got the money to buy more. Never true 03/23/20 23 Within the past 12 months, t he food you bought just didn't last and you didn't have money to get more. Never true 03/23/2023 Childcare Answer Date Recorded Do you feel overwhelmed with taking care of a child, family member or friend? No 03/23/2023 Does your family need help f inding childcare? (Household - for ages 0-17 years) Not on file 03/23/2023 Clothing Answer Date Recorded Have you been unable to get clothing when it was really needed? No 03/23/2023 Is your family able to get c lothes or diapers when needed? (Household - for ages 0-17 years) Not on file 03/23/2023 Personal Safety Answer Date Recorded Do you feel unsafe or have concerns for your saf ety? No 03/23/2023 Do you have concerns for you r family's safety? (Household - for ages 0-17 years) Not on file 03/23/2023 Utilities Answer Date Recorded Do you have trouble paying y our heating, water, or electric bill? No 03/23/2023 Is your family able to pay t he heat, water, or electric bill? (Household - for ages 0-17 years) Not on file 03/23/2023 Does your family have access to good internet? (Household - for ages 0-17 years) Not on file 03/23/2023 Employment Status Answer Date Recorded Are you unemployed or without regular income? No 03/23/2023 Does the household have a re gular source of income? (Household - for ages 0-17 years) Not on file 03/23/2023 Social Connections Answer Date Recorded How often do you feel lonely or isolated from th ose around you? Never 03/23/2023 Financial Resource Strain Answer Date R ecorded Do you have any trouble payi ng for your medications, or do you think you might in the future? No 03/23/2023 Does your family have troubl e paying for medicine? (Household - for ages 0-17 years) Not on file 03/23/2023 Transportation Needs Answer Date Record ed READ ONLY Do you have troubl e getting a ride to medical visits or work? Never True 03/23/2023 Does your family have a hard time getting a ride to doctors visits? (Household - for ages 0-17 years) Not on file 03/23/2023 Has lack of transportation k ept you from medical appointments, meetings, work, or from getting things needed for daily living? Check all that apply. (Adult - for ages 18 years and over) Not on file 03/23/2023 Do you (or your family) have trouble finding or paying for a ride (transportation)? (Household - for ages 0-17 years) Not on file 03/23/2023 Housing Stability Answer Date Recorded Do you currently live in a s helter or have no steady place to sleep at night? No 03/23/2023 READ ONLY Do you think you a re at risk of becoming homeless? No 03/23/2023 Does your family worry about paying for your home or becoming homeless? (Household - for ages 0-17 years) Not on file 1 05/23/2022 Are you homeless or worried that you might be in the future? (Adult - for ages 18 years and over) Not on file Are you (or your family) angelica eless or worried that you might be in the future? (Household - for ages 0-17 years) Not on file Food Insecurity Answer Date Recorded Do you need food for this week? No 03/23/2023 Are you able to get enough f ood for your family? (Household - for ages 0-17 years) Not on file 03/23/2023 Does your family need food t his week? (Household - for ages 0-17 years) Not on file 03/23/2023 Do you always have enough fo od for your family? (Household - for ages 0-17 years) Not on file 03/23/2023 Sex and Gender Information Value Date Recorded Sex Assigned at Male 10/21/2018 9:40 AM EDT Gender Identity Male 10/21/2018 9:40 AM EDT Sexual Orientation Straight 10/21/2018 9: 40 AM EDT Job Start Date Occupation Industry Not on file Not on file Not on file documented as of this encounter Functional Status Functional Status Response Date of Assess ment Are you deaf or do you have serious difficulty h earing? No 12/31/2019 Are you blind or do you have serious difficulty seeing, even when wearing glasses? No 12/31/2019 Do you have serious difficul ty walking or climbing stairs? (5 years old or older) No 12/31/2019 Do you have difficulty dress ing or bathing? (5 years old or older) No 12/31/2019 Because of a physical, menta l, or emotional condition, do you have difficulty doing errands alone such as visiting a doctor s office or shopping? (15 years old or older) No 12/31/19 20 Cognitive Status Response Date of Assessm ent Because of a physical, menta l, or emotional condition, do you have serious difficulty concentrating, remembering, or making decisions? (5 years old or older) No 12/31/2019 documented as of this encounter Plan of Treatment Upcoming Encounters Date Type Department Care Team (Late st Contact Info) Description 01/01/2024 7:30 AM EDT Office Visit [facility], [facility] [address] [facility] [place] [address] Osiel Betts CRNP [address] [facility] [place] [address] 03/24/2024 8:40 AM EST Office Visit [place] [address] [address] [place] [address] Kelley Avendano PA-C [address] [place] [address] [address] [place] [address] 04/18/2024 8:45 AM EST Office Visit [facility] [address] [place] [address] [place] [address] Reyes Ge MD [address] [place] [phone] Pending Results Name Type Priority Associated Diagnoses Date /Time XR LS SPINE FLEX AND EXT VIEWS ONLY Medical Imaging Routine Low back pain with sciatica, sciatica laterality unspecified, unspecified back pain laterality, unspecified chronicity 11/20/2023 11:30 AM EDT Scheduled Procedures Name Priority Associated Diagnoses Date/Ti me COLONOSCOPY FLEXIBLE PROXIMA L DIAGNOSTIC Recall Encounter for screening colonoscopy Health Maintenance Due Date Last Done Comments Hepatitis B Vaccine (1 of 3 - 19+ 3-dose series) 1984 Cologuard 2010 Fecal Occult Blood Test 2010 Sigmoidoscopy 2010 COVID-19 Vaccine (2022- season) 2023 Influenza Vaccine (FLU shot) (#1) 2024 03/23/2023, 02/08/2022, 02/07/2021, Additional history exists Depression Screening 03/23/2024 03/23/2023, 01/06/2015 (Discussed) GFR 03/23/2024 03/23/2023, 04/21, 02/08/2022, Additional history exists HbA1c 03/23/2024 03/23/2023, 01/20, 02/04/2021, Additional history exists DTaP,Tdap,and Td Vaccines (2 - Td or Tdap) 01/06/2025 01/06/2015 Albumin/Creatinine Ratio 03/23/2026 03/23/2023 Colonoscopy 04/10/2026 04/10/2016, 04/10/2016 Colorectal Cancer Screening 04/10/2026 Lipid Panel 03/23/2028 03/23/2023, 04/21, 02/08/2022, Additional history exists Zoster Vaccines Completed 09/05/2019, 05/28/2019 HPV (Gardasil) Vaccine Aged Out No lo nger eligible based on patient's age to complete this topic MENINGOCOCCAL (MENACTRA/MENVEO) Aged Out No longer eligible based on patient's age to complete this topic Pneumococcal Vaccine: Pediatrics (0 to 5 Years) and At-Risk Patients (6 to 64 Years) Aged Out No longer eligible based on patient's age to complete this topic documented as of this encounter Medical Devices Not on filedocumented as of this encounter Advance Directives * Full Code (Latest Code Status on File) Date Activated Date Inactivated Comments 12/31/2019 7:52 PM 01/02/2020 8:31 PM This order r eflects the patients wishes and were consensually agreed upon. 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
--- OUTSIDE RECORDS SUMMARY | 2023-11-29 16:00 | External Medical Summary | Summary of Care ---
Author Name Unknown Organization [facility] Address [address] [place] [address] Phone [phone] Care Team Providers Care [employer]er [employer] Name Role Phone Kelley AvendanoC Primary Care Provider [phone] Reason for Referral * Evaluate & Treat - Unlimited Visits (Within 10 days (routine)) - Pending Review Specialty Diagnoses / Procedures Referred By Contismael t Referred To Contact Physical Therapy / Physical Medicine And Rehab Diagnoses Low back pain with sciatica, sciatica laterality unspecified, unspecified back pain laterality, unspecified chronicity Lumbar radiculopathy Scoliosis of thoracolumbar spine, unspecified scoliosis type Lumbar back pain Reyes Ge MD [address] [place], [place] [address] [address] Referral ID Status Reason Start Date Expiration Date Visits Requested Visits Authorized [id number] Pending Review Specialty Services Required 11/20/2023 [id number] Question Answer Referral Priority Within 10 days (routine) Where should this appointment be scheduled? [facility] Comments Plan: Back core strengthening, stretching, ROM, conditioning, lower extremity strengthening as needed, topicals as needed 2 x a week for 6 weeks Modalities for pain relief * Evaluate & Treat - Unlimited Visits (Within 10 days (routine)) - Pending Review Specialty Diagnoses / Procedures Referred By Contac t Referred To Contact Pain Management / Pain Medicine Diagnoses Low back pain with sciatica, sciatica laterality unspecified, unspecified back pain laterality, unspecified chronicity Lumbar radiculopathy Scoliosis of thoracolumbar spine, unspecified scoliosis type Lumbar back pain Reyes Ge MD [address] [place] [address] Referral ID Status Reason Start Date Expiration Date Visits Requested Visits Authorized [id number] Pending Review Specialty Services Required 11/20/2023 [id number] Question Answer Referral Priority Within 10 days (routine) Where should this appointment be scheduled? [facility] Reason for referral? Interventional Pain Management - (Injection) What condition is the patient being referred for? Lumbar Radiculopathy What is the preferred location to have this test performed? [facility] Comments Patient Name: Jason Fernando Date of : 1965 Department Phone Number: MRI or CT (if unable to have a MRI) is recommended if any of the following apply: 1. Patient has neck or back pain with radiation to extremities. A previous MRI will be accepted if symptoms unchanged since prior MRI. 2. Spinal surgery since last MRI. If yes, order a MRI with and without contrast. 3. Hx or ongoing cancer treatment. Patient will need spine x-ray (Ap/Lat) for axial neck or back pain if not done previously. Fax No. [facility] [phone] or contact front desk attendant [phone] Fax No. [facility] [phone] or contact front desk attendant [phone] Fax No. [facility] [phone] or contact front desk attendant [phone] Reason for Visit * Reason Comments NEW PATIENT * Evaluate & Treat - Unlimited Visits (Within 10 days (routine)) - Pending Review Specialty Diagnoses / Procedures Referred By Eleazar morales Referred To Contact Neuro/Ortho Surgery - Spine. / Neurological Surgery Diagnoses DDD (degenerative disc disease), lumbar Kelley Avendano PA-C [address] [facility] [facility] [address] [place] [address] Reyes Ge MD [address] [place] [address] Referral ID Status Reason Start Date Expiration Date Visits Requested Visits Authorized [id number] Pending Review Specialty Services Required 11/14/2023 [id number] Encounter Details Date Type Department Care Team (Late st Contact Info) Description 11/20/2023 10:30 AM EDT Office Visit Orthopaedics Spine Surgery, [place] [address] [place] [address] Reyes Ge MD [address] [place] [address] Low back pain with sciatica, sciatica laterality unspecified, unspecified back pain laterality, unspecified chronicity*; Lumbar radiculopathy; Scoliosis of thoracolumbar spine, unspecified scoliosis type; Lumbar back pain Allergies No known active allergiesdocumented as of this encounter (statuses as of 11/20/2023) Medications Medication Sig Dispensed Refills Start Date End Date Status Metoprolol Succinate ER 50 MG Oral Tablet Extended Release 24 Hour (toPROL XL)Indications:H TN, goal below 130/80 Take 1 and 1/2 Tablets by mouth in the morning. 135 Tablet 3 03/23/2023 Active Rosuvastatin Calcium 40 MG Oral Tablet (Crestor)Indicat ions:Hyperlipide juan LDL goal <100 Take 1 Tablet by mouth in the morning. 90 Tablet 3 03/23/2023 Active methylPREDNISolo ne 4 MG Oral Tablet Therapy Pack (Medrol Dosepack) follow package directions 21 Tablet 11/20/2023 Active Cyclobenzaprine HCl 5 MG Oral Tablet (Flexeril) Take 1 Tablet by mouth 2 times a day as needed for Muscle spasms. 40 Tablet 2 11/20/2023 Active tiZANidine HCl 2 MG Oral Tablet (Zanaflex) Take 1 Tablet by mouth every 6 hours as needed for Muscle spasms. 30 Tablet 11/12/2023 11/20/2023 Discontinue d(End of Procedure) documented as of this encounter (statuses as of 11/20/2023) Active Problems Problem Noted Date Diagnosed Date [...] as of this encounter (statuses as of 11/20/2023) Resolved Problems Problem Noted Date Diagnosed Date [...] as of this encounter (statuses as of 11/20/2023) Immunizations Name Administration Dates Next Due Seasonal [...] on file documented as of this encounter Last Filed Vital Signs Vital Sign Reading Time Taken Comments Blood Pressure - - Pulse - - Temperature - - Respiratory Rate - - Oxygen Saturation - - Inhaled Oxygen Concentration - - Weight 115.8 kg (255 lb 3.2 oz) 024 10:59 AM EDT Height 182.9 cm (6') 11/20/2023 10:59 AM EDT Body Mass Index 34.61 11/20/2023 10:59 AM EDT documented in this encounter Functional Status Functional Status Response [...] No 12/31/2019 documented as of this encounter Progress Notes * Reyes Ge MD - 11/20/2023 11:43 AM EDT Date of service: 11/20/2023 CHIEF COMPLAINT: Jason Fernando is a 58 year old male presents with complaints/concerns of persistent low back pain with lower extremity radiculopathy. The symptoms have been ongoing for the past 2-3weeks. Patient denies any acute progressive neurological deficit, bowel bladder disturbances constitutional symptoms. Patient has done some early medications for transient relief. New Referring physician:Kelley Avendano PA-C HPI: Neck or Back - If both what is severe:low back, radiates down both legs with numbness/tingling. Which side extremity: Both Injury and date:no known injury Onset, progress and duration: 2 weeks Balance problems:yes Bladder or bowel disturbances:no Hand dominance for cervical and hand function: right Workman compensation/ Litigation/ Measurement And Sensing Technician:no Spine investigations done and date: Xray:11/11/23 MRI: CT scan: EMG/ NCV: Spine treatment so far: Medications: NSAIDS-aleve, tizanidine Physical therapy within last year:no Chiropractor therapy:no Brace use:yes-copper fit brace otc-did not work Pain management and Spinal epidural injections: no Spine surgery - Surgeon and year:no Significant Medical history: If diabetic HbA1c:n/a On blood thinners: n/a Osteoporosis screening:no Tobacco/ Illicit drug use: no Work profile-ups Allergies: Patient has no known allergies. The past medical, surgical, medication, family and social history was reviewed and is documented elsewhere in the chart. ROS: Negative except as outlined in HPI Vitals: Ht 1.829 m (6') | Wt 115.8 kg (255 lb 3.2 oz) | BMI 34.61 kg/m | BSA 2.43 m Body mass index is 34.61 kg/m. Physical Exam: General: alert, healthy and no distress. The general appearance appears normal. Cardiovascular system: Vascularity grossly preserved Spine evaluation Cervical, thoracic and lumbar spine: No paraspinal swelling. No deformity. Neurological examination: Motor power upper extremities - Bilateral shoulder abductors, elbow flexors, triceps, wrist flexorsand extensors and intrinsic muscles of the hand is 5/5. Motor power lower extremities - Bilateral hip flexors, knee extensors, ankle dorsiflexors, plantar flexors, EHL/EDL, FHL/FDL is 5/5. The deep tendon reflexes - Bilateral Biceps, triceps, brachioradialis, Patellar tendon, Achilles tendon are 2+ Sensation are grossly preserved bilaterally in upper extremities. Sensation are grossly preserved bilaterally in the lower extremities. Radiological imaging: I independently reviewed the relevant radiological imaging including x-rays ordered at this visit and discussed it with the patient X-rays of the lumbar spine including dynamic view show presence of multilevel degenerative changes.There is a mild thoracolumbar curvature. Assessment & Plan: Pt is a 58 year old male here for the following problems/concerns: Lumbar radiculopathy Lumbar back pain Lumbar scoliosis We discussed the diagnosis, the natural history and the treatment options. Based on the findings various treatment options including the risks, benefits and alternatives were discussed. Patient is neurologically stable but is symptomatic in relation to his back problem. At this point it was agreed to try adequate conservative measures. Physical therapy and pain management referral was made. Role of back brace and modalities of pain relief discussed. Steroid Dosepak and a muscle relaxer was prescribed for symptomatic relief as per the patient's request. Adverse effects precautions were discussed. Role of elective surgical intervention discussed. No urgent intervention indicated. Additional recommendations: Activity modification as tolerated Pain medications as per the primary care. If the patient has persistence or worsening of symptoms additional investigations will be recommended. Warning signs have been discussed. Follow up: 3-4 months . Reach out earlier if any neurological worsening. The patient expressed understanding and agreement to the plan. Complexity of decision making: High I spent 45 minutes on 11/20/2023 in preparation, delivery and documentation of the care provided to the patient, excluding any time spent on the performance of the procedure are separately billable service. Reyes Ge MD This chart was completed in part utilizing [employer] Voice Recognition Software. Grammatical errors, random word insertions, prounoun errors and incomplete sentences are an occasional consequence of this system due to software limitations, ambient noise, and hardware issues. Any formal questions or concerns about the content, text, or information contained within the body of this dictation should be directly addressed to the provider for clarification. documented in this encounter Nursing Notes * Allison Manning LPN - 11/20/2023 10:53 AM EDT Chief Complaint Patient presents with NEW PATIENT New Referring physician:Kelley Avendano PA-C HPI: Neck or Back - If both what is severe:low back, radiates down both legs with numbness/tingling. Which side extremity: Both Injury and date:no known injury Onset, progress and duration: 2 weeks Balance problems:yes Bladder or bowel disturbances:no Hand dominance for cervical and hand function: right Workman compensation/ Litigation/ Measurement And Sensing Technician:no Spine investigations done and date: Xray:11/11/23 MRI: CT scan: EMG/ NCV: Spine treatment so far: Medications: NSAIDS-aleve, tizanidine Physical therapy within last year:no Chiropractor therapy:no Brace use:yes-copper fit brace otc-did not work Pain management and Spinal epidural injections: no Spine surgery - Surgeon and year:no Significant Medical history: If diabetic HbA1c:n/a On blood thinners: n/a Osteoporosis screening:no Tobacco/ Illicit drug use: no Work profile-ups documented in this encounter Plan of Treatment Upcoming Encounters Date Type Department Care Team (Late st Contact Info) Description 03/24/2024 8:40 AM EST Office Visit [address] [place] [id number] Kelley Avendano PA-C [address] [place] [address] [place] [id number] 04/18/2024 8:45 AM EST Office Visit Orthopaedics Spine Surgery, [place] [place] [address] Reyes Ge MD [address] [place] [id number] Pending Results Name Type Priority Associated Diagnoses Date /Time XR LS SPINE FLEX AND EXT VIEWS ONLY Medical Imaging Routine Low back pain with sciatica, sciatica laterality unspecified, unspecified back pain laterality, unspecified chronicity 11/20/2023 11:30 AM EDT Scheduled Procedures Name Priority Associated Diagnoses Date/Ti me COLONOSCOPY FLEXIBLE PROXIMA L DIAGNOSTIC Recall Encounter for screening colonoscopy Scheduled Referrals Name Type Priority Associated Diagnoses Orde r Schedule PAIN MEDICINE REFERRAL OP Referral Within 10 days (routine) Low back pain with sciatica, sciatica laterality unspecified, unspecified back pain laterality, unspecified chronicity Lumbar radiculopathy Scoliosis of thoracolumbar spine, unspecified scoliosis type Lumbar back pain Ordered: 11/20/2023 PHYSICAL THERAPY REFERRAL OP Referral Within 10 days (routine) Low back pain with sciatica, sciatica laterality unspecified, unspecified back pain laterality, unspecified chronicity Lumbar radiculopathy Scoliosis of thoracolumbar spine, unspecified scoliosis type Lumbar back pain Ordered: 11/20/2023 Health Maintenance Due Date Last Done Comments Hepatitis B (1 of 3 - 19+ 3-dose series) [...] history exists Zoster Vaccines Completed 09/05/2019, 05/28/2019 GARDASIL-HPV IMMUNIZATION SERIES Aged Out No longer eligible based on [...] Not on filedocumented as of this encounter Visit Diagnoses Diagnosis Low back pain with sciatica, sciatica laterality unspecified, unspecified back pain laterality, unspecified chronicity- Primary Lumbar radiculopathy Thoracic or lumbosacral neuritis or radiculitis, unspecified Scoliosis of thoracolumbar spine, unspecified scoliosis type Lumbar back pain Lumbago documented in this encounter Advance Directives * Full Code (Latest Code Status on File) Date Activated Date Inactivated Comments 12/31/2019 7:52 PM 01/02/2020 8:31 PM This order r eflects the patients wishes and were consensually agreed upon. Question Answer Comments Discussion of Advance Directives occurred with: Not Discussed Care Teams Cleaner Industrial Relationship Specialty Start Date End Date Kelley Avendano PA-C [address] [address] [place] [address] PCP - General Physician Welt Rougher 10/18/18 documented as of this encounter"
--- OUTSIDE RECORDS SUMMARY | 2023-11-29 16:00 | External Medical Summary | Summary of Care ---
Author Name Unknown Organization [facility] Address [address] [place] [address] Phone [phone] Care Team Providers Care Sports Book Writer Name Role Phone Kelley Avendano PA-C Primary Care Provider [phone]- [phone] Reason for Visit * Reason Comments Back Pain Joint Pain * Auth/Cert Specialty Diagnoses / Procedures Referred By Contac t Referred To Contact [facility] [address] [place] [address] Phone: [phone] [facility] [address] [place] [address] Referral ID Status Reason Start Date Expiration Date Visits Re quested Visits Authorized [id number] Encounter Details Date Type Department Care Team (Late st Contact Info) Description 11/11/2023 8:35 PM EDT - 11/12/2023 12:32 AM EDT [facility] ([facility]) [address] [place] [address] Aditya Watts MD [address] [place] [address] Lumbosacral disc herniation (Primary Dx); Osteoarthritis of spine with radiculopathy, lumbar region Discharge Disposition: Home - Self Care Allergies No known active allergiesdocumented as of this encounter (statuses as of 11/12/2023) Medications Medication Sig Dispensed Refills Start Date End Date Status Metoprolol Succinate ER 50 MG Oral Tablet Extended Release 24 Hour (toPROL XL)Indications:HTN, goal below 130/80 Take 1 and 1/2 Tablets by mouth in the morning. 135 Tablet 3 03/23/2023 Active Rosuvastatin Calcium 40 MG Oral Tablet (Crestor)Indications :Hyperlipidemia LDL goal <100 Take 1 Tablet by mouth in the morning. 90 Tablet 3 03/23/2023 Active tiZANidine HCl 2 MG Oral Tablet (Zanaflex) Take 1 Tablet by mouth every 6 hours as needed for Muscle spasms. 30 Tablet 11/12/2023 Active documented as of this encounter (statuses as of 11/12/2023) Active Problems Problem Noted Date Diagnosed Date [...] as of this encounter (statuses as of 11/12/2023) Resolved Problems Problem Noted Date Diagnosed Date Resolved Date Class 2 severe obesity due t o excess calories with serious comorbidity and body mass index (BMI) of 36.0 to 36.9 in adult 02/07/2021 2 ATILIO (acute kidney injury) 12/31/2019 Dehydration 12/31/2019 05/31/2020 Chest tightness 12/31/2019 05/31/2020 Hyponatremia 12/31/2019 05/31/2020 Severe obesity with body mas s index (BMI) of 35.0 to 39.9 with serious comorbidity 10/21/2018 Obesity, Class I, BMI 30.0-3 4.9 (see actual BMI) 02/12/2017 10/21/2018 Pure hypercholesterolemia 03/03/2014 Esophageal reflux 03/03/2014 01/06/2015 documented as of this encounter (statuses as of 11/12/2023) Immunizations Name Administration Dates Next Due Seasonal [...] Sign Reading Time Taken Comments Blood Pressure 186/121 11/11/2023 11:30 PM EDT Pulse 82 11/11/2023 11:30 PM EDT Temperature 36.4 C (97.5 F) 11/11/2023 7:19 PM ED T Respiratory Rate 20 11/11/2023 11:3 0 PM EDT Oxygen Saturation 98% 11/11/2023 7:19 PM EDT Inhaled Oxygen Concentration - - Weight 117.7 kg (259 lb 6.4 oz) 11/11/2023 7:19 PM EDT Height 182.9 cm (6') 11/11/2023 7:19 PM EDT Body Mass Index 35.18 11/11/2023 7:19 PM EDT documented in this encounter Functional Status [...] No 12/31/2019 documented as of this encounter Discharge Instructions * Discharge Instructions* Aditya Watts MD - 11/12/2023 12:23 AM EDT To your medical provider this week to discuss referral to physical therapy, you may need MRI of your back if physical therapy fails. Back to the ER if any warning signs such as trouble controlling your urination or bowel movements, or if you have any symmetric problems in your legs or lower body, such as both sides being numb, both sides tingling, both sides having pain, or especially if both sides are weak at the same time, you need to come back to the ER right away to get rechecked to see if you need anything done sooner. No driving, heavy lifting, using machines or alcohol if taking Zanaflex/tizanidine Do not stand up fast if taking Zanaflex/tizanidine, you can pass out and fall down and get hurt documented in this encounter ED Notes * Carltoa Michael RN - 11/11/2023 7:22 PM EDT Patient is here for back pain over the last 4 days. Does not know if he injured it. Lower back painthat radiates to his R hip. Does cause some numbness in his R lower leg. Patient has also been experiencing some swelling in bilateral legs and feet. + Peripheral pulses and sensation intact documented in this encounter Miscellaneous Notes * ED Seismograph Computer Note - Anna Marie Castellanos RN - 11/12/2023 12:32 AM EDT Discharge instructions provided. Pt verbalized understanding. Pt rating pain 8/10 at this time. Pt aware prescriptions sent via escript to pharmacy. Pt discharged per physician order. Pt ambulated from this ED with steady gait. * Pt Handout (on AVS) - Aditya Watts MD - 11/12/2023 12:21 AM EDT Images from the original note were not included. [id number] Degenerative Disk Disease Spinal disks are gel-filled cushions between the bones, or vertebrae, of the spine. The disks act like shock absorbers. Over time, the disks may break down. This is called degenerative disk disease. This condition can affect the neck or back. It is one of the most common causes of low back pain. The pain often remains localized to the lower back or neck. Muscle spasm is often present and adds tothe pain. Disk degeneration is a natural part of aging. But it is not always painful. It may also occur as a result of repeated minor injuries from daily activities, sports, or accidents. It may also run in families. It may lead to osteoarthritis of the spine. Back pain related to disk disease may come and go. Or it may become chronic and last for months or years. The disk may bulge or rupture. This is called a slipped disk or herniated disk. That can put pressure on a nearby spinal nerve and cause neck or back pain that spreads down one arm or leg. X-rays, CT scan, or an MRI scan may help to diagnose this condition. For acute pain, treatment includes anti-inflammatory medicines, muscle relaxants, rest, ice, or heat. Strong prescription pain medicines, called opioids, may be needed for short-term treatment if pain suddenly gets worse. Opioid medicines can be addictive. So they are not advised for long-term pain management. Non-addictive types of medicines are preferred. Surgery is generally not used to treat this condition unless there is a complication. Home care For neck pain: Use a comfortable pillow that supports the head and keeps the spine in a neutral position. Your head should not be tilted forward or backward. For back pain: Don't sit for long periods of time. This puts more stress on the lower back than standing or walking. Starting a regular exercise program to strengthen the supporting muscles of thespine will make it easier to live with degenerative disk disease. Apply an ice pack over the injured area for no more than 15 to 20 minutes. Do this every 3 to 6 hours for the first 24 to 48 hours. To make an ice pack, put ice cubes in a plastic bag that seals at the top. Wrap the bag in a clean, thin towel or cloth. Never put ice or an ice pack directly on the skin. Keep using ice packs to ease pain and swelling as needed. After 48 hours, apply heat (warm shower or warm bath) for 20 minutes several times a day, or switch between ice and heat. You may use hujh-[id number] pain medicine to control pain unless another pain medicine was prescribed. If you have chronic liver or kidney disease or have ever had a stomach ulcer or GI bleeding,talk with your provider before using these medicines. Follow-up care Follow up with your healthcare provider as directed. If X-rays, a CT scan, or an MRI scan were done, you will be notified of any new findings that may affect your care. When to seek medical advice Contact your healthcare provider right away if any of these occur: Increasing back or neck pain Your foot drags when you walk, a condition called foot drop You have new weakness, numbness, or pain in one or both arms or legs Loss of bowel or bladder control Numbness or tingling in the buttock or groin area Last Reviewed Date: 03/21/202119993604-3255 [employer]. All rights reserved. This information is not intended as a substitute for professional medical care. Always follow your healthcare professional's instructions. * Pt Handout (on AVS) - Aditya Watts MD - 11/12/2023 12:21 AM EDT Images from the original note were not included. [id number] Back Pain (Acute or Chronic) Back pain is one of the most common problems. The good news is that most people feel better in 1 to2 weeks, and most of the rest in 1 to 2 months. Most people can remain active. People who have pain describe it differently?not everyone is the same. The pain can be sharp, stabbing, shooting, aching, cramping or burning. Movement, standing, bending, lifting, sitting, or walking may worsen pain. It can be limited to one spot or area, or it can be more generalized. It can spread upwards, to the front, or go down your arms or legs (sciatica). It can cause muscle spasm. Most of the time, mechanical problems with the muscles or spine cause the pain. Mechanical problemsare usually caused by an injury to the muscles or ligaments. Illness can cause back pain, but it's usually not caused by a serious illness. Mechanical problems include: Physical activity such as sports, exercise, work, or normal activity Overexertion, lifting, pushing, pulling incorrectly or too aggressively Sudden twisting, bending, or stretching from an accident, or accidental movement Poor posture Stretching or moving wrong, without noticing pain at the time Poor coordination, lack of regular exercise (check with your doctor about this) Spinal disc disease or arthritis Stress Pain can also be related to , or illness such as appendicitis, bladder or kidney infections, kidney stones, and pelvic infections. Acute back pain usually gets better in 1 to 2 weeks. Back pain related to disk disease, arthritis in the spinal joints, or narrowing of the spinal canal (spinal stenosis) can become chronic and last for months or years. Unless you had a physical injury such as a car accident or fall, X-rays are usually not needed for the first assessment of back pain. If pain continues and does not respond to medical treatment, you may need X-rays and other tests. Home care Try this home care advice: When in bed, try to find a position of comfort. A firm mattress is best. Try lying flat on your back with pillows under your knees. You can also try lying on your side with your knees bent up toward your chest and a pillow between your knees. At first, don't try to stretch out the sore spots. If there is a strain, it's not like the good soreness you get after exercising without an injury. In this case, stretching may make it worse. Don't sit for long periods, as in a long car ride or during other travel. This puts more stress on the lower back than standing or walking. During the first 24 to 72 hours after an acute injury or flare up of chronic back pain, apply anice pack to the painful area for 20 minutes and then remove it for 20 minutes. Do this over a period of 60 to 90 minutes or several times a day. This will reduce swelling and pain. Wrap the ice pack in a thin towel or plastic to protect your skin. You can start with ice, then switch to heat. Heat (hot shower, hot bath, or heating pad) reducespain and works well for muscle spasms. Heat can be applied to the painful area for 20 minutes then remove it for 20 minutes. Do this over a period of 60 to 90 minutes or several times a day. Don't sleep on a heating pad. It can lead to skin dutton or tissue damage. You can alternate ice and heat therapy. Talk with your doctor about the best treatment for your back pain. Therapeutic massage can help relax the back muscles without stretching them. Be aware of safe lifting methods. Don't lift anything without stretching first. Medicines Talk to your doctor before using medicine, especially if you have other medical problems or are taking other medicines. You may use vghy-ajt-pkjujld medicine as directed on the bottle to control pain, unless another pain medicine was prescribed. Talk with your healthcare provider before using these medicines if youhave chronic conditions such as diabetes, liver or kidney disease, stomach ulcers, or digestive bleeding. Also talk with your provider if you take blood thinners. Be careful if you are given a prescription medicines, narcotics, or medicine for muscle spasms. They can cause drowsiness, affect your coordination, reflexes, and judgment. Don't drive or operate heavy machinery. Follow-up care Follow up with your healthcare provider, or as advised. If X-rays were taken, you will be told of any new findings that may affect your care. Call 911 Call 911 if any of the following occur: Trouble breathing Confusion Very drowsy or trouble awakening Fainting or loss of consciousness Rapid or very slow heart rate Loss of bowel or bladder control When to seek medical advice Call your healthcare provider right away if any of these occur: Pain gets worse or spreads to your legs Your bowel or bladder control changes Fever Blood in your urine Weakness or numbness in one or both legs Numbness in the groin or genital area Last Reviewed Date: 05/21/202119996741-4741 [employer]. All rights reserved. This information is not intended as a substitute for professional medical care. Always follow your healthcare professional's instructions. documented in this encounter Plan of Treatment Upcoming Encounters Date Type Department Care Team (Late st Contact Info) Description 03/24/2024 8:40 AM EST Office Visit [place] [address] [place] [address] Kelley Avendano PA-C [address] [place] [address] Scheduled Procedures Name Priority Associated Diagnoses Date/Ti me COLONOSCOPY FLEXIBLE PROXIMA L DIAGNOSTIC Recall Encounter for screening colonoscopy Health Maintenance Due Date Last Done Comments Hepatitis B (1 of 3 - 19+ 3-dose series) 1984 Cologuard 2010 Fecal Occult Blood Test 2010 Sigmoidoscopy 2010 COVID-19 Vaccine ( season) 2023 Depression Screening 03/23/2024 03/23/2023, 01/06/2015 (Discussed) GFR 03/23/2024 03/23/2023, 04/21, 02/08/2022, Additional history exists HbA1c 03/23/2024 03/23/2023, 01/20, 02/04/2021, Additional history exists DTaP,Tdap,and Td Vaccines (2 - Td or Tdap) 01/06/2025 01/06/2015 Albumin/Creatinine Ratio 03/23/2026 03/23/2023 Colonoscopy 04/10/2026 04/10/2016, 04/10/2016 Colorectal Cancer Screening 04/10/2026 Lipid Panel 03/23/2028 03/23/2023, 04/21, 02/08/2022, Additional history exists Zoster Vaccines Completed 09/05/2019, 05/28/2019 Influenza Vaccine (FLU shot) Completed 07/2022, 02/08/2022, 02/07/2021, Additional history exists GARDASIL-HPV IMMUNIZATION SERIES Aged Out No longer [...] Not on filedocumented as of this encounter Procedures Procedure Name Priority Date/Time Associated Diagnosis Comments XR L SPINE COMPLETE STAT 11/11/2023 8 :13 PM EDT documented in this encounter Results * XR L SPINE COMPLETE (11/11/2023 8:13 PM EDT) Anatomical Region Laterality Modality Vertebra, Lspine Digital Radiogr aphy 11/11/2023 8:10 PM EDT Impressions 11/11/2023 10:29 PM EDT IMPRESSION: 1. No acute findings. 2. Advanced degenerative changes in the lumbar spine. THIS DOCUMENT HAS BEEN ELECTRONICALLY SIGNED BY DIGNA SELLERS MD Narrative 11/11/2023 10:29 PM EDT PROCEDURE INFORMATION: Exam: XR Lumbosacral Spine Exam date and time: 11/11/2023 8:10 PM Age: 58 years old Clinical indication: Other: Back pain TECHNIQUE: Imaging protocol: Radiologic exam of the lumbosacral spine. Views: 4 or 5 views. COMPARISON: MR l-spine^routine 02/05/2017 11:57 AM FINDINGS: Bones/joints: No acute fracture. Dextroconvex scoliosis of the lumbar spine with prominent anterior and lateral osteophytes. Vertebral bodies have normal height and alignment. Multilevel disc height loss. Prominent facet arthropathy in the mid to lower lumbar spine with neural foraminal narrowing greater at L4-L5 and L5-S1. Soft tissues: Unremarkable. Procedure Note Digna Sellers MD - 11/11/2023 PROCEDURE INFORMATION: Exam: XR Lumbosacral Spine Exam date and time: 11/11/2023 8:10 PM Age: 58 years old Clinical indication: Other: Back pain TECHNIQUE: Imaging protocol: Radiologic exam of the lumbosacral spine. Views: 4 or 5 views. COMPARISON: MR l-spine^routine 02/05/2017 11:57 AM FINDINGS: Bones/joints: No acute fracture. Dextroconvex scoliosis of the lumbarspine with prominent anterior and lateral osteophytes. Vertebral bodies havenormal height and alignment. Multilevel disc height loss. Prominent facetarthropathy in the mid to lower lumbar spine with neural foraminal narrowing greaterat L4-L5 and L5-S1. Soft tissues: Unremarkable. IMPRESSION IMPRESSION: 1. No acute findings. 2. Advanced degenerative changes in the lumbar spine. THIS DOCUMENT HAS BEEN ELECTRONICALLY SIGNED BY DIGNA SELLERS MD Baron Yang DO RADIOLOGY ([facility]) documented in this encounter Visit Diagnoses Diagnosis Lumbosacral disc herniation- Primary Displacement of lumbar intervertebral disc without myelopathy Osteoarthritis of spine with radiculopathy, lumbar region documented in this encounter Administered Medications Inactive Administered Medications - up to 3 most recent administrations Medication Order MAR Action Action Date Dose Rate Site cyclobenzaprine (Flexeril) tab 10 mg 10 mg, Oral, ONCE, On Sun11/12/23 at 0030, For 1 dose Given 11/12/2023 12:01 AM EDT 10 mg tiZANidine (Zanaflex) 2 mg tab 2 mg, Oral, ONCE, On Sun11/12/23 at 0045, For 1 dose Given 11/12/2023 12:27 AM EDT 2 mg documented in this encounter Active and Recently Administered Medications Times are shown in EDT. Scheduled Medication Order 11/10/2023 11/11/2023 11/12/2023 cyclobenzaprine (Flexeril) tab 10 mg (COMPLETED) 10 mg, Oral, ONCE, On Sun11/12/23 at 0030, For 1 dose 0001 (Given - Provid er: Yesica Snider RN) tiZANidine (Zanaflex) 2 mg tab (COMPLETED) 2 mg, Oral, ONCE, On Sun11/12/23 at 0045, For 1 dose 0027 (Given - Provid er: Anna Marie Castellanos RN) documented in this encounter Advance Directives * Full Code (Latest Code Status on File) Date Activated Date Inactivated Comments 12/31/2019 7:52 PM 01/02/2020 8:31 PM This order r eflects the patients wishes and were consensually agreed upon. Question Answer Comments Discussion of Advance Directives occurred with: Not Discussed Care Teams Sports Book Writer Relationship Specialty Start Date End Date Kelley Avendano PA-C [address] [facility] [address] [facility] [address] [place] [address] PCP - General Physician Water Resources Technical Officer 10/18/18 documented as of this encounter
--- NOTE | 2023-11-30 10:06 | Coding Query ---
CODING QUERY To promote full compliance with coding requirements relating to patient care, provider participation is requested in all cases of house visitor uncertainty. Please assist us with the question(s) below: Clinical Indicators: ED Note: * CHIEF COMPLAINT: Chest tightness, tingling, dizzy, dehydration * Blood work here with leukocytosis of 19, hyponatremia 129, hyperkalemia 5.5, creatinine elevation 1.73 with very slight ALT elevation of 66. Normal troponin. CK was checked to ensure no rhabdomyolysis. Given IV fluids here. * Given his hyponatremia, hyperkalemia, acute kidney injury all likely related to dehydration, would recommend that we observe him overnight for hydration and improvement of these to ensure no worsening hyperkalemia or renal function. H&P: * Acute kidney injury. Likely prerenal due to dehydration * Leukocytosis; Hypercalcemia; Hyperkalemia; Hyponatremia; Likely secondary to ATILIO, dehydration Discharge Summary: * Renal USD:The kidneys are normal in size and without hydronephrosis. The appearance of the bladder suggests chronic outlet obstruction. * Received IV fluids * Chest Pain: Likely related to high blood pressure * Added losartan for better blood pressure control * Discharge Diagnosis: * Acute kidney injury * Leukocytosis * Hypercalcemia * Hyperkalemia * Hyponatremia * Hypertensive urgency * Presyncope Coding Question(s): Based on your best medical judgement, can you further clarify the principal reason for admission as: ( ) Dehydration (x ) Acute Kidney Injury ( ) Hypertension ( ) Other (please specify) ( ) Unable to determine. Physician's Response(s): Thank you Cielo Leavitt Principal Diagnosis: "that condition established after study, to be chiefly responsible for occasioning the admission of the patient to the hospital for care." Co-Existing Principal Diagnosis: "when two or more diagnoses equally meet the criteria for principal diagnosis as determined by the circumstances of admission, diagnostic work up, and/or therapy provided, and the Alphabetic Index, Tabular List, or another coding guideline does not provide sequencing direction, any one of the diagnoses may be sequenced first." "When the physician has documented what appears to be a current diagnosis in the body of the record, but has not included the diagnosis in the final diagnostic statement, the physician should be asked whether the diagnosis should be added." (Source Coding [facility] 2 QTR90. p3-4) ASHOK
== END 2023-11-29 13:59 | disposition home or self-care (01) | DRG 683 ==
LOC: ED 15:56 → 2W 17:55